=== PATIENT | female | born 1955 | race Caucasian/White ===

== ENCOUNTER 2017-11-12 20:06 | Observation (INO) | payer BC, OTHER ==
[2017-11-12] MEDS ORDERED: Sodium Chloride 0.9% 5 ML Syringe FLUSH PRN (20:41)
--- NOTE | 2017-11-12 20:53 | EDM.PDOC ---
ED HPI GENERAL MEDICAL PROBLEM - General Chief Complaint: Chest Pain Stated Complaint: Palpitations Time Seen by Provider: 11/12/17 20:41 Source of Information: Reports: Patient History Limitations: Reports: No Limitations - History of Present Illness INITIAL COMMENTS - FREE TEXT/NARRATIVE: Patient is a 62-year-old female who presents to the emergency department this evening with a complaint of palpitations. Patient states that palpitations began about 1845 this evening. She did have similar episode last night, took Inderal, and symptoms resolved shortly thereafter. Approximately one year ago. Patient had similar symptoms and she was worked up with echocardiogram and Holter monitor, but patient states there were no findings. Patient takes Inderal for migraine headaches. Patient also has history of hypothyroidism. Patient denies shortness of breath, chest pain, headache, nausea, vomiting, abdominal pain, or any early family cardiac history. Onset: Today, Sudden Onset Date: 11/12/17 Onset Time: 18:45 Duration: Constant Location: Reports: Chest Quality: Reports: Other (No pain) Severity: Mild Improves with: Reports: None Worsens with: Reports: None Context: Reports: Other (At rest) Associated Symptoms: Reports: No Other Symptoms Treatments SAW MAKER: Reports: NSAIDS - Related Data Allergies Allergy/AdvReac Type Severity Reaction Status Date / Time No Known Allergies Allergy Verified 11/12/17 20:08 Home Meds: Home Meds Aspirin [Halfprin] 81 mg PO DAILY 11/12/17 [History] Calcium Carbonate/Vitamin D3 [Calcium 500 + Vit D Caplet] 1 tab PO DAILY [History] Denosumab [Prolia] 60 mg .ROUTE ASDIRECTED 11/12/17 [History] Levothyroxine 225 mcg PO DAILY 11/12/17 [History] Propranolol [Inderal] 40 mg PO BID 11/12/17 [History] atorvaSTATin [Lipitor] 20 mg PO DAILY 11/12/17 [History] ED ROS GENERAL - Review of Systems Review Of Systems: ROS reveals no pertinent complaints other than HPI. Constitutional: Reports: No Symptoms HEENT: Reports: No Symptoms Respiratory: Reports: No Symptoms Cardiovascular: Reports: Palpitations Endocrine: Reports: No Symptoms GI/Abdominal: Reports: No Symptoms : Reports: No Symptoms Musculoskeletal: Reports: No Symptoms Skin: Reports: No Symptoms Neurological: Reports: No Symptoms Psychiatric: Reports: No Symptoms Hematologic/Lymphatic: Reports: No Symptoms Immunologic: Reports: No Symptoms ED EXAM, GENERAL - Physical Exam Exam: See Below Exam Limited By: No Limitations General Appearance: Alert, WD/WN, No Apparent Distress Eye Exam: Bilateral Eye: Normal Inspection Throat/Mouth: Normal Inspection, Normal Oropharynx, No Airway Compromise Head: Atraumatic, Normocephalic Neck: Normal Inspection, Supple, Non-Tender Respiratory/Chest: No Respiratory Distress, Lungs Clear, Normal Breath Sounds, No Accessory Muscle Use, Chest Non-Tender Cardiovascular: Tachycardia GI/Abdominal: Normal Bowel Sounds, Soft, Non-Tender, No Organomegaly, No Distention, No Abnormal Bruit, No Mass Back Exam: Normal Inspection. No: CVA Tenderness (L), CVA Tenderness (R) Extremities: Normal Inspection, No Pedal Edema Neurological: Alert, Oriented, CN II-XII Intact, Normal Cognition Psychiatric: Normal Affect, Normal Mood Skin Exam: Warm, Dry, Intact, Normal Color, No Rash EKG INTERPRETATION EKG Date: 11/12/17 Time: 20:20 Rhythm: A-Fib Rate (Beats/Min): 121 [place]: Normal P-Wave: Absent QRS: Normal ST-T: Normal QT: Normal Comparison: NA - No Prior EKG EKG Interpretation Comments: Second EKG at 2131 Following 20 mg Cardizem IV showed normal sinus rhythm at 96 Course - Vital Signs Last Recorded V/S: Last Vital Signs Temp 98.1 F 11/12/17 20:08 Pulse 143 H 11/12/17 20:08 Resp 18 11/12/17 20:08 BP 140/84 11/12/17 20:08 Pulse Ox 95 11/12/17 20:08 - Orders/Labs/Meds Orders: Active Orders 24 hr Category Date Time Status EKG Documentation Completion [RC] ASDIRECTED Care 11/12/17 20:43 Ordered Peripheral IV Care [RC] . DIRECTED Care 11/12/17 20:42 Ordered Chest 1V Frontal [CR] Stat Exams 11/12/17 20:28 Ordered CBC WITH AUTO DIFF [HEME] Stat Lab 11/12/17 20:28 Ordered COMPREHENSIVE METABOLIC PN,CMP [CHEM] Stat Lab 11/12/17 20:28 Ordered FREE T3 [REF] Stat Lab 11/12/17 20:41 Ordered INR,PT,PROTHROMBIN TIME [COAG] Stat Lab 11/12/17 20:28 Ordered TROPONIN I [CHEM] Stat Lab 11/12/17 20:41 Ordered TSH ULTRASENSITIVE [CHEM] Stat Lab 11/12/17 20:41 Ordered Sodium Chloride 0.9% [Syrex Flush] Med 11/12/17 20:41 Ordered 5 ml FLUSH Q8HR PRN Peripheral IV Insertion Adult [OM.PC] Routine Oth 11/12/17 20:41 Ordered EKG 12 Lead [EK] Routine Ther 11/12/17 20:43 Ordered Medication Orders Sodium Chloride (Syrex Flush) 5 ml FLUSH Q8HR PRN PRN Reason: Keep Vein Open Meds: Medications Generic Name Dose Route Start Last Admin Trade Name Freq PRN Reason Stop Dose Admin Sodium Chloride 5 ml 11/12/17 20:41 Syrex Flush FLUSH Q8HR PRN Keep Vein Open - Radiology Interpretation Free Text/Narrative:: Chest x-ray shows no acute cardiopulmonary process - Re-Assessments/Exams Free Text/Narrative Re-Assessment/Exam: 11/12/17 21:47 Patient afebrile, nontoxic appearing, vital signs stable, EKG post Cardizem infusion normal sinus rhythm at 96. Discussed case with Willard Gibbs from [facility] and he will admit patient for observation. Departure - Departure Time of Disposition: 21:48 Disposition: Refer to Observation Condition: Fair Clinical Impression: Atrial fibrillation Qualifiers: Atrial fibrillation type: paroxysmal Qualified Code(s): I48.0 - Paroxysmal atrial fibrillation - My Orders Last 24 Hours: My Active Orders 11/12/17 20:28 Chest 1V Frontal [CR] Stat CBC WITH AUTO DIFF [HEME] Stat COMPREHENSIVE METABOLIC PN,CMP [CHEM] Stat INR,PT,PROTHROMBIN TIME [COAG] Stat 11/12/17 20:41 FREE T3 [REF] Stat TROPONIN I [CHEM] Stat TSH ULTRASENSITIVE [CHEM] Stat Sodium Chloride 0.9% [Syrex Flush] 5 ml FLUSH Q8HR PRN Peripheral IV Insertion Adult [OM.PC] Routine 11/12/17 20:42 Peripheral IV Care [RC] . DIRECTED 11/12/17 20:43 EKG Documentation Completion [RC] ASDIRECTED EKG 12 Lead [EK] Routine - Assessment/Plan Last 24 Hours: My Active Orders 11/12/17 20:28 Chest 1V Frontal [CR] Stat CBC WITH AUTO DIFF [HEME] Stat COMPREHENSIVE METABOLIC PN,CMP [CHEM] Stat INR,PT,PROTHROMBIN TIME [COAG] Stat 11/12/17 20:41 FREE T3 [REF] Stat TROPONIN I [CHEM] Stat TSH ULTRASENSITIVE [CHEM] Stat Sodium Chloride 0.9% [Syrex Flush] 5 ml FLUSH Q8HR PRN Peripheral IV Insertion Adult [OM.PC] Routine 11/12/17 20:42 Peripheral IV Care [RC] . DIRECTED 11/12/17 20:43 EKG Documentation Completion [RC] ASDIRECTED EKG 12 Lead [EK] Routine Assessment:: Atrial fibrillation Plan: Admit observation
[2017-11-12] MEDS ORDERED: Diltiazem 25 MG/5 ML SDV IVPUSH ONE (21:01)
[2017-11-12 21:17] LABS: ANION GAP 13.4 mmol/L (5-15); CHLORIDE,CL 100 mmol/L (98-115); SODIUM,NA 138 mmol/L (136-145)
[2017-11-12] MEDS ORDERED: Diltiazem IR 60 MG Tab PO SCH (22:00)
[2017-11-12] MEDS ORDERED: Nitroglycerin 0.4 MG Tab.SL SL PRN (23:11)
[2017-11-12] MEDS ORDERED: EPINEPHrine 1:10,000 1 MG/10 ML Syringe IVPUSH PRN (23:11)
[2017-11-12] MEDS ORDERED: Atropine 0.1 MG/ML 10 ML Syringe IVPUSH PRN (23:11)
[2017-11-12] MEDS ORDERED: Lidocaine 2% 100 MG/5 ML Syringe IVPUSH PRN (23:11)
[2017-11-12] MEDS ORDERED: Diltiazem IR 30 MG Tab PO ONE (23:18)
[2017-11-13] MEDS: Levothyroxine 100 MCG Tab PO SCH ×2 (08:27→08:29)
[2017-11-13] MEDS ORDERED: Aspirin 81 MG Tab.EC PO SCH ×2 (09:00)
[2017-11-13] MEDS ORDERED: Levothyroxine 25 MCG Tab PO SCH ×2 (09:00)
--- NOTE | 2017-11-13 09:42 | PCM.HP ---
H&P History of Present Illness - General Date of Service: 11/13/17 Admit Problem/Dx: Admission Diagnosis/Problem Admission Diagnosis/Problem Atrial fibrillation Source of Information: Patient, Old Records, Provider History Limitations: Reports: No Limitations - History of Present Illness Initial Comments - Free Text/Narative: HISTORY OF PRESENT ILLNESS 62-year-old female was admitted into observation late last night when she came in through the ED due to palpitations and atrial fibrillation with RVR. Patient states that palpitations began about 1845 last evening. She did have similar episode last night, took 40 mg propanolol which she normally takes for prophylaxis migraine headaches--symptoms resolved shortly thereafter. May 2016 patient was worked up or similar symptoms in which she had echocardiogram and underwent 48 hour Holter monitoring--all findings relatively normal however independently reviewed echocardiogram did show grade 1 diastolic dysfunction. She she has no history of hypertension, heart disease, however does have hyperlipidemia and hypothyroidism. d Patient denies shortness of breath, chest pain, headache, nausea, vomiting, abdominal pain, or any early family cardiac history. - Related Data Allergies/Adverse Reactions: Allergies Allergy/AdvReac Type Severity Reaction Status Date / Time No Known Allergies Allergy Verified 11/12/17 20:08 Home Medications: Home Meds Aspirin [Halfprin] 81 mg PO DAILY 11/12/17 [History] Calcium Carbonate/Vitamin D3 [Calcium 500 + Vit D Caplet] 1 tab PO DAILY [History] Denosumab [Prolia] 60 mg .ROUTE ASDIRECTED 11/12/17 [History] Levothyroxine 25 mcg PO DAILY 11/12/17 [History] Propranolol [Inderal] 40 mg PO BID 11/12/17 [History] atorvaSTATin [Lipitor] 20 mg PO DAILY 11/12/17 [History] Past Medical History Neurological History: Reports: Migraines Endocrine/Metabolic History: Reports: Hypothyroidism - Past Surgical History Respiratory Surgical History: Reports: Thoracotomy Other Respiratory Surgeries/Procedures: 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 Female Surgical History: Reports: Section, Hysterectomy Musculoskeletal Surgical History: Reports: Other (See Below) Other Musculoskeletal Surgeries/Procedures:: cervical rib bilateral surgery Social & Family History - Tobacco Use Smoking Status *Q: Never Smoker - Recreational Drug Use Recreational Drug Use: No H&P Review of Systems - Review of Systems: Review Of Systems: See Below General: Reports: No Symptoms HEENT: Reports: Headaches, Other (Nasal polyps) Pulmonary: Reports: No Symptoms Cardiovascular: Reports: No Symptoms Gastrointestinal: Reports: No Symptoms Genitourinary: Reports: No Symptoms Musculoskeletal: Reports: No Symptoms Skin: Reports: No Symptoms Psychiatric: Reports: No Symptoms Neurological: Reports: No Symptoms Hematologic/Lymphatic: Reports: No Symptoms Exam - Exam Exam: See Below - Vital Signs Vital Signs: Last Vital Signs Temp 97.6 F 11/13/17 07:00 Pulse 74 11/13/17 07:00 Resp 16 11/13/17 07:00 BP 111/84 11/13/17 07:00 Pulse Ox 96 11/13/17 07:00 Weight: 162 lb 5 oz - Exam Quality Assessment: No: Supplemental Oxygen, DVT Prophylaxis General: Alert, Oriented, 4 HEENT: Hearing Intact, Mucosa Moist & [place] Neck: No: JVD Lungs: Clear to Auscultation, Normal Respiratory Effort Cardiovascular: Regular Rate, Regular Rhythm. No: Irregular Rhythm, Diastolic Murmur (Female) Exam: Deferred Back Exam: No: CVA Tenderness (L) Peripheral Pulses: 2+: Radial (L) Skin: Warm, Dry, Intact Neurological: Normal Speech Neuro Extensive - Mental Status: Alert, Oriented x3, Normal Mood/Affect, Normal Cognition Psychiatric: Alert, Normal Affect, Normal Mood - Patient Data Lab Results Last 24 hrs: Laboratory Results - last 24 hr 11/12/17 11/12/17 11/12/17 Range/Units 20:35 20:35 20:35 WBC 7.55 (5.00-10.00) 10^3/uL RBC 5.16 (3.80-5.50) 10^6/uL Hgb 14.6 (12.0-16.0) g/dL Hct 42.8 (37.0-47.0) % MCV 82.9 (82.0-92.0) fL MCH 28.3 (27.0-31.0) pg MCHC 34.1 (32.0-36.0) g/dL RDW 13.2 (11.5-14.5) % Plt Count 291 (150-400) 10^3/uL MPV 10.0 (7.4-10.4) fL Immature Gran % (Auto) 0.4 (0.0-5.0) % Neut % (Auto) 55.7 (50.0-70.0) % Lymph % (Auto) 31.9 (20.0-40.0) % Harris % (Auto) 8.3 H (2.0-8.0) % Eos % (Auto) 3.2 H (1.0-3.0) % Baso % (Auto) 0.5 (0.0-1.0) % Immature Gran # (Auto) 0.03 (0.00-0.50) 10^3/uL Neut # (Auto) 4.20 (2.50-7.00) 10^3/uL Lymph # (Auto) 2.41 (1.00-4.00) 10^3/uL Harris # (Auto) 0.63 (0.10-0.80) 10^3/uL Eos # (Auto) 0.24 (0.10-0.30) 10^3/uL Baso # (Auto) 0.04 (0.00-0.10) 10^3/uL PT 10.3 (8.9-11.4) SEC INR 1.0 (0.9-1.1) Sodium 138 (136-145) mmol/L Potassium 4.0 (3.3-5.3) mmol/L Chloride 100 (98-115) mmol/L Carbon Dioxide 28.6 (21.0-32.0) mmol/L Anion Gap 13.4 (5-15) mmol/L BUN 23 (6-25) mg/dL Creatinine 0.83 (0.51-1.17) mg/dL Est Cr Clr Drug Dosing 70.89 mL/min Estimated GFR (MDRD) > 60 mL/min Glucose 108 mg/dL Calcium 9.2 (8.7-10.3) mg/dL Magnesium (1.8-2.4) mg/dL Total Bilirubin 0.3 (0.2-1.0) mg/dL AST 23 (15-37) U/L ALT 28 (12-78) U/L Alkaline Phosphatase 102 (46-116) IU/L Troponin I (0.00-0.070) ng/mL Total Protein 7.5 (6.4-8.2) g/dL Albumin 4.11 (3.00-4.80) g/dL TSH, Ultra Sensitive (0.340-4.820) uIU/mL 11/12/17 11/12/17 Range/Units 20:35 20:35 WBC (5.00-10.00) 10^3/uL RBC (3.80-5.50) 10^6/uL Hgb (12.0-16.0) g/dL Hct (37.0-47.0) % MCV (82.0-92.0) fL MCH (27.0-31.0) pg MCHC (32.0-36.0) g/dL RDW (11.5-14.5) % Plt Count (150-400) 10^3/uL MPV (7.4-10.4) fL Immature Gran % (Auto) (0.0-5.0) % Neut % (Auto) (50.0-70.0) % Lymph % (Auto) (20.0-40.0) % Harris % (Auto) (2.0-8.0) % Eos % (Auto) (1.0-3.0) % Baso % (Auto) (0.0-1.0) % Immature Gran # (Auto) (0.00-0.50) 10^3/uL Neut # (Auto) (2.50-7.00) 10^3/uL Lymph # (Auto) (1.00-4.00) 10^3/uL Harris # (Auto) (0.10-0.80) 10^3/uL Eos # (Auto) (0.10-0.30) 10^3/uL Baso # (Auto) (0.00-0.10) 10^3/uL PT (8.9-11.4) SEC INR (0.9-1.1) Sodium (136-145) mmol/L Potassium (3.3-5.3) mmol/L Chloride (98-115) mmol/L Carbon Dioxide (21.0-32.0) mmol/L Anion Gap (5-15) mmol/L BUN (6-25) mg/dL Creatinine (0.51-1.17) mg/dL Est Cr Clr Drug Dosing mL/min Estimated GFR (MDRD) mL/min Glucose mg/dL Calcium (8.7-10.3) mg/dL Magnesium 1.9 (1.8-2.4) mg/dL Total Bilirubin (0.2-1.0) mg/dL AST (15-37) U/L ALT (12-78) U/L Alkaline Phosphatase (46-116) IU/L Troponin I 0.04 (0.00-0.070) ng/mL Total Protein (6.4-8.2) g/dL Albumin (3.00-4.80) g/dL TSH, Ultra Sensitive 3.960 (0.340-4.820) uIU/mL Result Diagrams: 11/12/17 20:35 11/12/17 20:35 EKG INTERPRETATION Rhythm: NSR P-Wave: Present Comparison: No Change Problem List Initiated/Reviewed/Updated: Yes Orders Last 24hrs: Active Orders 24 hr Category Date Time Status Patient Status [ADT] Routine ADT 11/12/17 21:42 Ordered Oxygen Therapy [RC] PRN Care 11/12/17 21:42 Active VTE/DVT Education [RC] PER UNIT ROUTINE Care 11/12/17 21:42 Active Vital Signs [RC] 0300,0700,1100,1500,1900,2300 Care 11/12/17 21:42 Active Regular Diet [DIET] Diet 11/13/17 Breakfast Active Chest 1V Frontal [CR] Stat Exams 11/12/17 20:28 Taken FREE T3 [REF] Stat Lab 11/12/17 20:35 Received Aspirin [Halfprin] Med 11/13/17 09:00 Active 81 mg PO DAILY Atropine [Atropine 0.1 MG/ML] Med 11/12/17 23:11 Active 0 mg IVPUSH ASDIRECTED PRN EPINEPHrine [EPINEPHrine 1:10,000] Med 11/12/17 23:11 Active 1 mg IVPUSH ASDIRECTED PRN Levothyroxine Med 11/13/17 09:00 Active 25 mcg PO DAILY Levothyroxine [Synthroid] Med 11/13/17 09:00 Active 200 mcg PO DAILY Lidocaine 2% [Xylocaine 2%] Med 11/12/17 23:11 Active 0 mg IVPUSH ASDIRECTED PRN Nitroglycerin [Nitrostat] Med 11/12/17 23:11 Active 0.4 mg SL ASDIRECTED PRN Sodium Chloride 0.9% [Syrex Flush] Med 11/12/17 20:41 Active 5 ml FLUSH Q8HR PRN Peripheral IV Insertion Adult [OM.PC] Routine Oth 11/12/17 20:41 Ordered Resuscitation Status Routine Resus Stat 11/12/17 21:42 Ordered EKG 12 Lead [EK] Routine Ther 11/12/17 20:43 Ordered Medication Orders Aspirin (Halfprin) 81 mg PO DAILY [facility] Last Admin: 11/13/17 08:27 Dose: 81 mg Atropine Sulfate (Atropine 0.1 Mg/Ml) 0 mg IVPUSH ASDIRECTED PRN PRN Reason: Heart Epinephrine HCl (Epinephrine 1:10,000) 1 mg IVPUSH ASDIRECTED PRN PRN Reason: Heart Levothyroxine Sodium (Levothyroxine) 25 mcg PO DAILY [facility] Last Admin: 11/13/17 08:27 Dose: 25 mcg Levothyroxine Sodium (Synthroid) 200 mcg PO DAILY [facility] Last Admin: 11/13/17 08:29 Dose: Lidocaine HCl (Xylocaine 2%) 0 mg IVPUSH ASDIRECTED PRN PRN Reason: Heart Nitroglycerin (Nitrostat) 0.4 mg SL ASDIRECTED PRN PRN Reason: Heart Sodium Chloride (Syrex Flush) 5 ml FLUSH Q8HR PRN PRN Reason: Keep Vein Open Assessment/Plan Comment:: HISTORY OF PRESENT ILLNESS 62-year-old female was admitted into observation late last night when she came in through the ED due to palpitations and atrial fibrillation with RVR. Patient states that palpitations began about 1845 last evening. She did have similar episode last night, took 40 mg propanolol which she normally takes for prophylaxis migraine headaches--symptoms resolved shortly thereafter. May 2016 patient was worked up or similar symptoms in which she had echocardiogram and underwent 48 hour Holter monitoring--all findings relatively normal however independently reviewed echocardiogram did show grade 1 diastolic dysfunction. She she has no history of hypertension, heart disease, however does have hyperlipidemia and hypothyroidism. d Patient denies shortness of breath, chest pain, headache, nausea, vomiting, abdominal pain, or any early family cardiac history. She does take aspirin 81 mg by mouth daily Pertinent ED findings/workup Initial EKG upon arrival regular rhythm however Likely A. fib heart rate 120-140 Converted to NSR CVR with 20 mg diltiazem IVP Chest x-ray normal Electrolytes normal TSH 3.9 Upon arrival to the floor diltiazem 30 mg by mouth every 8 hours was ordered. Magnesium was assessed on morning labs. Normal Impression/plan Paroxysmal atrial fibrillation, [id number] 1 Rule out ARAMIS Disposition/plan Long discussion with patient regarding options. She will be discharged today and cross tapered down from her Inderal and placed on diltiazem especially in light of atrial fibrillation while on prophylactic beta vonda therapy. She could benefit from both however due to her low BP likely would not be able to tolerate dual therapy of CCB and BB. Could benefit from cardiology consultation for possible loop recorder as she may be a candidate for rhythm control strategy. Since she has a low [id number] of 1, ASA therapy 325 mg is an option for her for now so we'll forego DOAC. Patient is in agreement with this strategy.
--- NOTE | 2017-11-13 10:26 | PCM.DCSUM1 ---
Discharge Summary - Hospital Course Diagnosis: Stroke: No - Discharge Data Discharge Date: 11/13/17 Discharge Disposition: Home, Self-Care 01 Condition: Good - Patient Instructions Diet: Regular Diet as Tolerated Activity: As Tolerated Driving: May Drive Today Showering/Bathing: May Shower Other/Special Instructions: Call or seek care for any symptoms such as chest pain, lightheadedness, dizziness. Medication cross taper plan; will reduce propanolol to 20 mg twice daily for 1 week. Then 10 mg twice daily 1 week. Then discontinue. The same time we added diltiazem 30 mg every 8 hours. Stay on diltiazem until you see Dr. Fernandez--unless BP gets too low below 100 systolically. I have placed a cardiology consultation in for you-- [facility]. - Discharge Plan *PRESCRIPTION DRUG MONITORING PROGRAM REVIEWED*: Not Applicable *COPY OF PRESCRIPTION DRUG MONITORING REPORT IN PATIENT TERRANCE: Not Applicable Prescriptions/Med Rec: Diltiazem HCl [Cardizem] 30 mg PO Q8HR #30 tablet Home Medications: Home Meds Aspirin [Halfprin] 81 mg PO DAILY 11/12/17 [History] Calcium Carbonate/Vitamin D3 [Calcium 500 + Vit D Caplet] 1 tab PO DAILY [History] Denosumab [Prolia] 60 mg .ROUTE ASDIRECTED 11/12/17 [History] Levothyroxine 25 mcg PO DAILY 11/12/17 [History] atorvaSTATin [Lipitor] 20 mg PO DAILY 11/12/17 [History] Diltiazem HCl [Cardizem] 30 mg PO Q8HR #30 tablet 11/13/17 [Rx] Propranolol [Inderal] 20 mg PO BID #0 11/13/17 [Rx] Referrals: Rebecca Billy MD [Primary Care Provider] - - Discharge Summary/Plan Comment DC Time >30 min.: Yes Discharge Summary/Plan Comment: HISTORY OF PRESENT ILLNESS 62-year-old female was admitted into observation late last night when she came in through the ED due to palpitations and atrial fibrillation with RVR. Patient states that palpitations began about 1845 last evening. She did have similar episode last night, took 40 mg propanolol which she normally takes for prophylaxis migraine headaches--symptoms resolved shortly thereafter. May 2016 patient was worked up or similar symptoms in which she had echocardiogram and underwent 48 hour Holter monitoring--all findings relatively normal however independently reviewed echocardiogram did show grade 1 diastolic dysfunction. She she has no history of hypertension, heart disease, however does have hyperlipidemia and hypothyroidism. d Patient denies shortness of breath, chest pain, headache, nausea, vomiting, abdominal pain, or any early family cardiac history. Pertinent ED findings/workup Initial EKG upon arrival regular rhythm however Likely A. fib heart rate 120-140 Converted to NSR CVR with 20 mg diltiazem IVP Chest x-ray normal Electrolytes normal TSH 3.9 Final diagnosis Paroxysmal atrial fibrillation, [id number] 1 Grade 1 diastolic dysfunction Rule out ARAMIS Hospital course Uneventful, no chest pain, she remained in NSR 70s with an occasional unifocal PVC. He felt no palpitations throughout the night. No headache. Upon arrival to the floor diltiazem 30 mg by mouth every 8 hours was ordered. Magnesium was assessed on morning labs and was normal. She was ready to be discharged. He did have slight hypotension asymptomatic so she was given very low dose of diltiazem. Medication changes/plan Increase aspirin to 325 mg Diltiazem 30 mg by mouth every 8 hours (newly added) Decreased propanolol to 20 mg by mouth twice a day with the plan on eventually discontinue tolerated. Disposition/plan Long discussion with patient regarding options. She will be discharged today and cross tapered down from her Inderal and placed on diltiazem especially in light of atrial fibrillation while on prophylactic beta vonda therapy. She could benefit from both however due to her low BP likely would not be able to tolerate dual therapy of CCB and BB. Could benefit from cardiology consultation for possible loop recorder as she may be a candidate for rhythm control strategy. Since she has a low [id number] of 1, ASA therapy 325 mg is an option for her for now so we'll forego DOAC. Patient is in agreement with this strategy. - General Info Date of Service: 11/13/17 Subjective Update: See physical exam completed same day as H&P same day as discharge - Patient Data Vitals - Most Recent: Last Vital Signs Temp 97.6 F 11/13/17 07:00 Pulse 74 11/13/17 07:00 Resp 16 11/13/17 07:00 BP 111/84 11/13/17 07:00 Pulse Ox 96 11/13/17 07:00 Weight - Most Recent: 162 lb 5 oz I&O - Last 24 hours: Intake & Output 11/12/17 11/13/17 11/13/17 22:59 06:59 14:59 Output Total 0 Balance 0 Lab Results - Last 24 hrs: Laboratory Results - last 24 hr 11/12/17 11/12/17 11/12/17 Range/Units 20:35 20:35 20:35 WBC 7.55 (5.00-10.00) 10^3/uL RBC 5.16 (3.80-5.50) 10^6/uL Hgb 14.6 (12.0-16.0) g/dL Hct 42.8 (37.0-47.0) % MCV 82.9 (82.0-92.0) fL MCH 28.3 (27.0-31.0) pg MCHC 34.1 (32.0-36.0) g/dL RDW 13.2 (11.5-14.5) % Plt Count 291 (150-400) 10^3/uL MPV 10.0 (7.4-10.4) fL Immature Gran % (Auto) 0.4 (0.0-5.0) % Neut % (Auto) 55.7 (50.0-70.0) % Lymph % (Auto) 31.9 (20.0-40.0) % [place] % (Auto) 8.3 H (2.0-8.0) % Eos % (Auto) 3.2 H (1.0-3.0) % Baso % (Auto) 0.5 (0.0-1.0) % Immature Gran # (Auto) 0.03 (0.00-0.50) 10^3/uL Neut # (Auto) 4.20 (2.50-7.00) 10^3/uL Lymph # (Auto) 2.41 (1.00-4.00) 10^3/uL [place] # (Auto) 0.63 (0.10-0.80) 10^3/uL Eos # (Auto) 0.24 (0.10-0.30) 10^3/uL Baso # (Auto) 0.04 (0.00-0.10) 10^3/uL PT 10.3 (8.9-11.4) SEC INR 1.0 (0.9-1.1) Sodium 138 (136-145) mmol/L Potassium 4.0 (3.3-5.3) mmol/L Chloride 100 (98-115) mmol/L Carbon Dioxide 28.6 (21.0-32.0) mmol/L Anion Gap 13.4 (5-15) mmol/L BUN 23 (6-25) mg/dL Creatinine 0.83 (0.51-1.17) mg/dL Est Cr Clr Drug Dosing 70.89 mL/min Estimated GFR (MDRD) > 60 mL/min Glucose 108 mg/dL Calcium 9.2 (8.7-10.3) mg/dL Magnesium (1.8-2.4) mg/dL Total Bilirubin 0.3 (0.2-1.0) mg/dL AST 23 (15-37) U/L ALT 28 (12-78) U/L Alkaline Phosphatase 102 (46-116) IU/L Troponin I (0.00-0.070) ng/mL Total Protein 7.5 (6.4-8.2) g/dL Albumin 4.11 (3.00-4.80) g/dL TSH, Ultra Sensitive (0.340-4.820) uIU/mL 11/12/17 11/12/17 Range/Units 20:35 20:35 WBC (5.00-10.00) 10^3/uL RBC (3.80-5.50) 10^6/uL Hgb (12.0-16.0) g/dL Hct (37.0-47.0) % MCV (82.0-92.0) fL MCH (27.0-31.0) pg MCHC (32.0-36.0) g/dL RDW (11.5-14.5) % Plt Count (150-400) 10^3/uL MPV (7.4-10.4) fL Immature Gran % (Auto) (0.0-5.0) % Neut % (Auto) (50.0-70.0) % Lymph % (Auto) (20.0-40.0) % [place] % (Auto) (2.0-8.0) % Eos % (Auto) (1.0-3.0) % Baso % (Auto) (0.0-1.0) % Immature Gran # (Auto) (0.00-0.50) 10^3/uL Neut # (Auto) (2.50-7.00) 10^3/uL Lymph # (Auto) (1.00-4.00) 10^3/uL [place] # (Auto) (0.10-0.80) 10^3/uL Eos # (Auto) (0.10-0.30) 10^3/uL Baso # (Auto) (0.00-0.10) 10^3/uL PT (8.9-11.4) SEC INR (0.9-1.1) Sodium (136-145) mmol/L Potassium (3.3-5.3) mmol/L Chloride (98-115) mmol/L Carbon Dioxide (21.0-32.0) mmol/L Anion Gap (5-15) mmol/L BUN (6-25) mg/dL Creatinine (0.51-1.17) mg/dL Est Cr Clr Drug Dosing mL/min Estimated GFR (MDRD) mL/min Glucose mg/dL Calcium (8.7-10.3) mg/dL Magnesium 1.9 (1.8-2.4) mg/dL Total Bilirubin (0.2-1.0) mg/dL AST (15-37) U/L ALT (12-78) U/L Alkaline Phosphatase (46-116) IU/L Troponin I 0.04 (0.00-0.070) ng/mL Total Protein (6.4-8.2) g/dL Albumin (3.00-4.80) g/dL TSH, Ultra Sensitive 3.960 (0.340-4.820) uIU/mL Med Orders - Current: Current Medications Aspirin (Halfprin) 81 mg PO DAILY [facility] Last Admin: 11/13/17 08:27 Dose: 81 mg Atropine Sulfate (Atropine 0.1 Mg/Ml) 0 mg IVPUSH ASDIRECTED PRN PRN Reason: Heart Epinephrine HCl (Epinephrine 1:10,000) 1 mg IVPUSH ASDIRECTED PRN PRN Reason: Heart Levothyroxine Sodium (Levothyroxine) 25 mcg PO DAILY [facility] Last Admin: 11/13/17 08:27 Dose: 25 mcg Levothyroxine Sodium (Synthroid) 200 mcg PO DAILY [facility] Last Admin: 11/13/17 08:29 Dose: Not Given Lidocaine HCl (Xylocaine 2%) 0 mg IVPUSH ASDIRECTED PRN PRN Reason: Heart Nitroglycerin (Nitrostat) 0.4 mg SL ASDIRECTED PRN PRN Reason: Heart Sodium Chloride (Syrex Flush) 5 ml FLUSH Q8HR PRN PRN Reason: Keep Vein Open Discontinued Medications Aspirin (Halfprin) 81 mg PO DAILY [facility] Diltiazem HCl (Diltiazem) 20 mg IVPUSH ONETIME ONE Stop: 11/12/17 21:02 Last Admin: 11/12/17 21:13 Dose: 20 mg Diltiazem HCl (Cardizem) 60 mg PO Q8HR [facility] Last Admin: 11/12/17 23:18 Dose: Not Given Diltiazem HCl (Cardizem) 30 mg PO ONETIME ONE Stop: 11/12/17 23:19 Last Admin: 11/12/17 23:41 Dose: 30 mg Levothyroxine Sodium (Levothyroxine) 225 mcg PO DAILY [facility]
== END 2017-11-13 11:10 | disposition home or self-care (01) ==
LOC: KA.ED 20:06 → KA.MS 21:42 → KA.ED 21:53 → UNDOADMOB 22:29 → KA.MS 22:29
PROVIDERS: ADMIT Physician Assistant Surgical; ATTEND Nurse Practitioner Family
DX: I48.0 Paroxysmal atrial fibrillation (principal); I51.9 Heart disease, unspecified; E03.9 Hypothyroidism, unspecified; Z79.82 Long term (current) use of aspirin; Z79.899 Other long term (current) drug therapy
CPT/HCPCS: 36415; 71045; 80053; 83735; 84443; 84481; 84484; 85025; 85610; 96374; 99285; A9270-GY; G0378; J3490

== ENCOUNTER 2021-08-03 19:27 | Emergency (ER) | payer MEDICARE, BC | END 2021-08-03 21:04 | disposition home or self-care (01) | LOC: KA.ED 19:27 | DX: S52.532A Colles' fracture of left radius, initial encounter for closed fracture (principal); E03.9 Hypothyroidism, unspecified; Z79.82 Long term (current) use of aspirin; Z79.899 Other long term (current) drug therapy; W18.30XA Fall on same level, unspecified, initial encounter | CPT/HCPCS: 29085; 29125; 73100-LT; 73110-LT; 99283; 99283-25 ==

== ENCOUNTER 2021-08-14 07:03 | Emergency (ER) | payer MEDICARE, BC ==
[2021-08-14] MEDS: Sodium Chloride 0.9% 1,000 ML IV ONE ×2 (07:37→11:47)
[2021-08-14] MEDS: HYDROmorphone 1 MG/ML Syringe IVPUSH ONE ×3 (07:39→14:12)
[2021-08-14] MEDS: Iopamidol 755 Mg/ML 75 ML Bottle IVPUSH ONE (08:00)
[2021-08-14] MEDS: Sodium Chloride 0.9% 50 ML IV SCH (08:00)
[2021-08-14 11:24] LABS: ANION GAP 11.4 mmol/L (5-15); CHLORIDE,CL 105 mmol/L (98-107); ESTIMATED GFR 81 mL/min (>=60); SODIUM,NA 141 mmol/L (136-145)
== END 2021-08-14 15:50 ==
LOC: KA.ED 07:03
DX: M79.81 Nontraumatic hematoma of soft tissue (principal)
CPT/HCPCS: 36415; 80053; 81001; 83690; 85025; 87086; 87088; 96361; 96374; 96376; 99285-25; J1170; J7030; Q9967

== ENCOUNTER 2022-01-01 09:01 | Day surgery (SDC) | payer MEDICARE, BC ==
[~2022-01-01 09:01] MED LIST: Sodium Chloride 0.9% 10 ML Syringe FLUSH PRN
[2022-01-01] MEDS: Lactated Ringers 1,000 ML IV SCH (09:29)
[2022-01-01] MEDS ORDERED: Midazolam 1 MG/ML 2 ML SDV ONE (09:36)
[2022-01-01] MEDS ORDERED: Propofol 200 MG/20 ML SDV ONE (09:36)
== END 2022-01-01 12:20 | disposition home or self-care (01) ==
LOC: KA.SDS 09:01
PROVIDERS: ATTEND Family Medicine
DX: Z12.11 Encounter for screening for malignant neoplasm of colon (principal); D12.2 Benign neoplasm of ascending colon; K57.30 Diverticulosis of large intestine without perforation or abscess without bleeding; K64.8 Other hemorrhoids; I48.0 Paroxysmal atrial fibrillation; N39.0 Urinary tract infection, site not specified; E78.5 Hyperlipidemia, unspecified; F41.9 Anxiety disorder, unspecified; G43.909 Migraine, unspecified, not intractable, without status migrainosus; Z90.49 Acquired absence of other specified parts of digestive tract; Z90.710 Acquired absence of both cervix and uterus; Z79.82 Long term (current) use of aspirin; Z79.899 Other long term (current) drug therapy; Z79.01 Long term (current) use of anticoagulants
CPT/HCPCS: 00812; J2250; J2704; J7120